=== PATIENT | female | born 1990 | race Caucasian/White ===

== ENCOUNTER → 2020-12-12 15:57 | Outpatient (CLI) | payer BC, SELFPAY ==
--- NOTE | ~2020-12-12 | XR_ITS ---
EXAMINATION: XR hand RT min 3V DATE: 12/12/2020 16:50 INDICATION: Right hand pain. TECHNIQUE: 3 views of right hand were obtained. COMPARISON: None. FINDINGS: Bone alignment is normal. No fracture. Joint spaces are well maintained. IMPRESSION: 1. Normal right hand. Reviewed, dictated and finalized at location A. IMPRESSION: 1. Normal right hand.
== END ==
PROVIDERS: PCP Family Medicine; Visit Provider Physician Assistant Medical
DX: M79.641 Pain in right hand (principal)
CPT/HCPCS: 73130

== ENCOUNTER → 2021-05-15 03:07 | Outpatient (CLI) | payer OTHER, SELFPAY ==
[2021-05-15 19:14] LABS: SARS-CoV-2 RNA PCR Negative
== END ==
PROVIDERS: Visit Provider Surgery Plastic and Reconstructive Surgery
DX: Z01.812 Encounter for preprocedural laboratory examination (principal); Z20.822 Contact with and (suspected) exposure to COVID-19
CPT/HCPCS: C9803; U0003; U0005

== ENCOUNTER 2021-05-18 05:46 | Day surgery (SDC) | payer OTHER, SELFPAY ==
[2021-05-04 12:23] VITALS: BMI 22.2
--- NOTE | 2021-05-17 08:15 | WPDANESEPPF ---
Anes - Initial Pre Proc Eval Procedure: Operation Date: 05/18/21 07:30 Proposed Procedures p Dual Plane Bilateral Breast Augmentation Mammoplasty - Hammad Andino MD Date/Time: 05/17/21 08:15 Surgeon: Hammad Andino MD Pre Op Diagnosis: Micromastia Patient Data Age: 30 Gender: F Height: 1.7 m Weight: 64.41 kg Allergies Allergy/AdvReac Type Severity Reaction Status Date / Time No Known Allergies Allergy Verified 05/18/21 06:51 Home Medications Medication Instructions Recorded Confirmed Type PNV cmb#95-ferrous fumarate-FA 1 tablet PO DAILY 08/17/19 05/18/21 History [] norgestimate 0.25 mg-ethinyl 1 tablet PO DAILY 12/12/20 05/18/21 History estradiol 35 mcg tablet carisoprodol 350 mg tablet 350 mg PO TID PRN #21 tablet 05/03/21 05/18/21 Rx docusate sodium 100 mg capsule 100 mg PO DAILY #14 cap 05/03/21 05/18/21 Rx ondansetron HCl 4 mg tablet 4 mg PO Q8H #21 tablet 05/03/21 05/18/21 Rx oxycodone-acetaminophen 5 mg-325 1 tablet PO Q6H PRN #15 tablet 05/03/21 05/18/21 Rx mg tablet Patient hx anesthesia problems: none Family hx anesthesia problems: none Results Review: All pre-operative results and documents have been reviewed as part of the pre-operative evaluation. COUNTS INCLUDE 234 BEDS AT THE [facility] Family History Family History Grandparent Family history of malignant neoplasm Family history of Alzheimer's disease Family history of pancreatic cancer Mother Family history of lupus erythematosus Hypoglycemia Social History Social History Smoking status: Unknown if ever smoked Second hand tobacco smoke exposure: No Alcohol intake: current Alcohol use details: socially Substance use: never Living arrangements: with family Spiritual care concerns: No Anes - Eval Final PreProcedure Day of Procedure 05/17/21 08:15 Patient weight: normal Heart: regular rate and rhythm Lungs: clear to auscultation and normal air movement Airway: Mallampati scale class II Neurological: alert and oriented Last oral intake: >/= 8 hours ASA classification: I Emergent: no Anesthetic plan: proceed Anesthesia type and monitoring: general LMA and standard monitoring Results Review: All pre-operative results and documents have been reviewed as part of the pre-operative evaluation. Informed Consent: The patient's anesthetic plan and its attendant risks and benefits were discussed with the patient/family/POA. Questions were solicited and answers provided to the satisfaction of the patient/family/POA.
[2021-05-18] VITALS (9 sets, daily range): BP systolic 100–114; BP diastolic 62–82; PULSE 62–96; RESP 13–21; TEMP 36.8–37.1; O2SAT 99–100; BMI 22.1
[2021-05-18] MEDS: LACTATED RINGERS 1,000 ML 30 ML IV CONT ×2 (06:47→08:25)
[2021-05-18] MEDS: SCOPOLAMINE 1.5 MG PATCH TRANSDERM (06:47)
--- NOTE | 2021-05-18 06:58 | WPDHPUPDATE1 ---
History and Physical Update Update Date/Time: 05/18/21 06:58 History and Physical has been reviewed, including an updated exam of the patient. There are NO changes in the patient's condition. Risks, benefits, and alternatives have been discussed and questions answered. Patient agrees to proceed with procedure.
--- NOTE | 2021-05-18 07:07 | W.PM.PROC2 ---
Procedure Note - Detailed Date of Procedure 05/18/21 Pre-op Diagnosis Micromastia Post-op Diagnosis same Procedure Performed Bilateral Augmentation Mammaplasty Surgeon Hammad Andino MD Anesthesia general Findings Bilateral Augmentation Mammaplasty Rick Patel SoftTouch 360cc Right - REF# [facility] SN [id number] dual plane 3 Left - REF# [id number] SN [id number] dual plane 3 Description of Procedure She is here today for bilateral breast augmentation. Previously and again today the risks, benefits, alternatives were discussed in extensive detail. I wanted her to be very realistic about the risks involved as well as expectations. We discussed aftercare and what to monitor for. Made sure answered all of her questions to her satisfaction today and consent was obtained. Marked in the preoperative holding area with their verification. The patient was taken to the operating room placed supine on the operating table. Anesthesia was provided by anesthesiology. A surgical time-out was taken. We cleansed the skin and 1% lidocaine and 0.25% Marcaine with epinephrine was used anesthetize as a field block. She was prepped and draped in a standard sterile fashion. Tegaderm nipple Albarado were placed. A 15 blade used to make an incision along the inframammary fold. Dissection was continued at 45 degree angle until the chest wall as identified. I elevated above the muscle in a dual plane fashion. I incised the pectoralis major along its inferior border and completely released the inferior border leaving the medial border intact. I created a subpectoral pocket in the appropriate dimensions based on our preoperative planning for the implant. I then copiously irrigated with saline solution and verified a strict hemostasis. Next the use a triple antibiotic and Betadine containing solution to irrigate the pocket. I washed my gloves with the triple antibiotic and Betadine solution. We washed the implant immediately upon opening it with this solution and only opened it when we needed it. I used implant funnel and no-touch technique. The implant was introduced into the pocket using the funnel. Having verified positioning of the implant this was closed using 2-0 Vicryl followed by 3-0 Monocryl in a running subcuticular 4-0 Monocryl followed by tissue glue. Fluffs, Zachary wrap, and surgical bra were placed. Patient was awoke and taken to PACU without difficulty. All instrument sponge counts were correct at the end of the case. Estimated Blood Loss 20 Drains No Packing No Pathology none sent Complications No immediate complications Condition stable Disposition PACU
[2021-05-18] MEDS: ceFAZolin SODIUM 2 GM/20 ML SW SYRINGE IV PUSH (07:22)
[2021-05-18] MEDS: BUPIVACAINE HCL 0.25% 50 ML VIAL INFILTRATE (07:52)
[2021-05-18] MEDS: LIDO 1%/EPINEPHRINE 1:100,000 20 ML VIAL 30 ML INFILTRATE (07:53)
[2021-05-18] MEDS: fentaNYL CITRATE INJ (*CRX) 100 MCG/2 ML VIAL 25 MCG IV PUSH ×2 (08:46→09:01)
[2021-05-18] MEDS: oxyCODONE HCL (*CRX) 5 MG TAB IR PO (09:34)
[2021-05-18] MEDS: ONDANSETRON INJ 4 MG/2 ML VIAL IV PUSH (09:45)
[2021-05-18] MEDS: diphenhydrAMINE HCl INJ 50 MG/ML VIAL 25 MG IV PUSH (10:19)
--- NOTE | 2021-05-18 12:40 | WPDANESPN ---
Anes - Prog Note Post-Op Date/Time: 05/18/21 12:40 Cardiovascular status: normal Respiratory status: normal Airway patency: baseline Mental status: baseline Post-Op hydration status: normal Vital Signs: Last Vital Signs Temp 36.8 C 05/18/21 08:31 Pulse 76 05/18/21 10:31 Resp 13 05/18/21 10:31 BP 114/74 05/18/21 10:31 Pulse Ox 99 05/18/21 10:31 Pain Score (VAS): 2 I/O: Intake & Output 05/17/21 05/18/21 05/18/21 23:59 07:59 15:59 Intake Total 700 Balance 700 Post-procedural complaints: none Patient Feedback: Patient satisfied with anesthetic care. Other Findings: Patient vital signs back to baseline. Patient denies nausea and vomiting. Patient's pain under control. Patient OK for discharge.
== END 2021-05-18 10:50 | disposition home or self-care (01) ==
PROVIDERS: Visit Provider Surgery Plastic and Reconstructive Surgery
PROC: (CPT 19325; principal; 2021-05-18 07:30)
DX: N64.82 Hypoplasia of breast (principal)
CPT/HCPCS: 19325

== ENCOUNTER 2024-03-24 12:57 | Outpatient (CLI) | payer BC, SELFPAY ==
--- NOTE | ~2024-03-24 | XR_ITS ---
XR foot LT min 3V Ordering provider: Carey Noriega, History: . Trauma Lt great toe . Comparison: None. FINDINGS: BONES: No acute fracture or dislocation. JOINT SPACES: Normal. No tarsal coalition. SOFT TISSUES: Normal. IMPRESSION: No acute osseous abnormality left foot. Reviewed, dictated and finalized at location A.
== END 2024-03-24 12:58 ==
PROVIDERS: PCP Internal Medicine; Visit Provider Internal Medicine
DX: S90.932A Unspecified superficial injury of left great toe, initial encounter (principal); X58.XXXA Exposure to other specified factors, initial encounter
CPT/HCPCS: 73630

== ENCOUNTER 2024-05-05 19:46 | Observation (INO) | payer BC, SELFPAY ==
--- NOTE | 2024-05-05 22:05 | PC.NURSE ---
MD notified of patient arrival to labor and delivery with complaints of possible contractions. Dr. Obregon aware that patient has been monitored for over 2 hours FHTs have moderate variability and accels present. Patient is aron irregularly. MD aware of no cervical change. New orders to discharge patient at this time. Patient agrees and feels comfortable with being discharged.
[2024-05-05 22:27] VITALS: BMI 31.4
--- NOTE | 2024-05-05 22:27 | OBADM ---
This patient, Diana Garces, admitted to the OB room Labor/Delivery/Recovery 105 for observation. Patient/family oriented to hospital policies and general routines including ID bracelet, bed and alarms, visiting hours, pain management, procedures, bathroom and other care routines, personal items, smoking policy, room service/diet, and visiting hours. Patient/Family are encouraged to report perceived risks to care and to ask questions if they do not understand what they are told or what they should do.
--- NOTE | 2024-05-06 10:27 | PM.OBTRLD ---
OB - Triage/Final Diagnosis Visit Information Date of evaluation: 05/05/24 Reason for evaluation: threatened labor Comments/Additional reasons for admission: I have assessed the risk for this patient, Diana Garces, and determined that she would benefit from observation care. Evaluation Vital signs: Vital Signs - 24 hr 05/05/24 22:41 Oxygen Delivery Room Air
== END 2024-05-05 23:10 | disposition home or self-care (01) ==
PROVIDERS: Admitting Provider Student in an Organized Health Care Education/Training Program; PCP Internal Medicine; Visit Provider Student in an Organized Health Care Education/Training Program
DX: O47.03 False labor before 37 completed weeks of gestation, third trimester (principal); Z3A.36 36 weeks gestation of pregnancy
CPT/HCPCS: G0378; G0379

== ENCOUNTER 2024-05-26 04:59 | Inpatient (IN) | payer OTHER, SELFPAY ==
[2024-05-26] VITALS (136 sets, daily range): BP systolic 81–129; BP diastolic 47–89; PULSE 64–110; RESP 16; TEMP 36.5–37.1; O2SAT 94–100; BMI 32.1
--- NOTE | 2024-05-26 05:27 | LDADM ---
This patient, Diana Garces, was admitted to Labor/Delivery/Recovery 104 on 05/26/24 at 04:59. Plans for labor, pain management and were discussed with patient. Patient/family oriented to hospital policies and general routines including ID bracelet, bed and alarms, visiting hours, pain management, procedures, bathroom and other care routines, personal items, smoking policy, room service/diet and guest tray routines, security routines, and visiting hours. Patient/Family are encouraged to report perceived risks to care and to ask questions if they do not understand what they are told or what they should do. See OBIX for further documentation.
[2024-05-26 05:42] LABS: Basophils Absolute Auto 0.1 K/mm3 (0.0-0.1); Basophils Percent Auto 0.5 % (0.2-1.2); Eosinophils Absolute Auto 0.1 K/mm3 (0-0.3); Eosinophils Percent Auto 0.8 % (0-4.4); Hematocrit 33.5 % (37.0-47.0); Hemoglobin 11.7 g/dL (12.0-15.0); Immature Granulocyte Percent A 1.1 % (0-0.5); Lymphocytes Absolute Auto 2.41 K/mm3 (0.9-3.2); Lymphocytes Percent Auto 26.3 % (18.3-44.2); Mean Corpuscular HGB Conc 34.9 g/dl (32-36); Mean Corpuscular Hemoglobin 32.1 pg (26-34); Mean Platelet Volume 9.5 fl (7.4-10.4); Monocytes Absolute Auto 0.8 K/mm3 (0.1-0.6); Monocytes Percent Auto 8.8 % (2.6-8.5); Neutrophils Absolute Auto 5.7 K/mm3 (1.3-6.7); Neutrophils Percent Auto 62.5 % (45.5-73.1); Platelet Count Result 173 k/mm3 (150-375); Red Blood Count 3.64 M/mm3 (4.2-5.4); Red Cell Distribution Width 12.6 % (11.5-14.5); White Blood Count 9.2 K/mm3 (4.5-10.0)
[2024-05-26] MEDS: OXYTOCIN 30 UNITS/NS 500 ML 30 UNITS/500 ML BAG IV CONT ×2 (05:59→13:07)
[2024-05-26] MEDS: LACTATED RINGERS 1,000 ML 125 ML IV CONT ×2 (05:59→08:35)
[2024-05-26] MEDS: ONDANSETRON INJ 4 MG/2 ML VIAL IV PUSH (06:12)
[2024-05-26 06:33] LABS: HIV 1/2 Ab P24 Ag Result Negative (Negative)
[2024-05-26 08:29] LABS: Rapid Plasma Reagin Non-Reactive (NonReactive)
--- NOTE | 2024-05-26 12:56 | WPDHPUPDATE1 ---
History and Physical Update Update Date/Time: 05/26/24 12:56 History and Physical has been reviewed, including an updated exam of the patient. There are NO changes in the patient's condition. Risks, benefits, and alternatives have been discussed and questions answered. Patient agrees to proceed with procedure.
--- NOTE | 2024-05-26 12:56 | WPDOBADMIT ---
Obstetrics - Admit Note Admission Note: record reviewed. No pertinent additions to the history and/or any subsequent changes in the physical findings that are not consistent with the expected course of the were found. Additions to the history and/or subsequent changes in the physical findings follow. None.
--- NOTE | 2024-05-26 12:56 | PM.OBPRVD ---
OB - Vaginal Delivery Note Procedure Delivery date: 05/26/24 Events: Elective Induction of Labor Induction method: AROM Delivery augmentation: Pitocin Delivery monitor: External FHT and External Uterine Route of delivery: Episiotomy description: None Laceration Description: Perineal - 1st Degree Delivery repair: chromic Specimen: No Quantitative Blood Loss (ml): 300 Anesthesia type: Epidural Disposition: Floor Complications: No immediate complications Narrative: Patient prepped and draped in usual manner for this procedure. Maternal expulsive efforts readily delivered vertex over intact perineum. Rest of baby was delivered cord clamped cut and placenta delivered spontaneously. Uterus was well contracted. Cervix vagina were inspected with first-degree vaginal wall laceration. This was rendered hemostatic and approximation 0 chromic in a running interlocking manner with good approximation. Patient are procedure well immediate postoperative condition baby and a mother were both excellent. Baby Gestational Age by Date: 39 Infant gender: Female Weight (pounds): 8 Weight (ounces): 15 presentation: vertex position: Right Occiput Anterior Placenta delivery description: Spontaneous Cord Vessel Description: 3 Vessels score one minute: 8 score five minutes: 9
[2024-05-26] MEDS: BENZOCAINE 20% AER SPR (*SP) 56 GM CAN 1 SPRAY (15:57)
[2024-05-26] MEDS: WITCH HAZEL 40 PADS 1 PAD (15:57)
--- NOTE | 2024-05-26 16:10 | OBPPTRN ---
Patient transferred to post room #285 via wheelchair. Support person present. Oriented to unit, room, information board, rooming in, admission packet and security measures. Patient verbalizes understanding.
[2024-05-26] MEDS: IBUPROFEN 600 MG TABLET PO (18:35)
[2024-05-27 00:01] VITALS: BP 96/54; PULSE 77; RESP 16; TEMP 36.6; O2SAT 99
[2024-05-27 06:06] LABS: Hematocrit 31.2 % (37.0-47.0); Hemoglobin 10.6 g/dL (12.0-15.0)
[2024-05-27] MEDS: DOCUSATE SODIUM 100 MG CAPSULE PO (07:12)
[2024-05-27] MEDS: MULTIVIT/MIN/PREN/FOL AC/IRON TABLET 1 TAB PO (07:12)
[2024-05-27] MEDS: IBUPROFEN 600 MG TABLET PO (07:13)
[2024-05-27 08:40] VITALS: BP 114/68; PULSE 82; RESP 16; TEMP 36.2; O2SAT 100
--- NOTE | 2024-05-27 08:51 | PM.OBDSVD ---
DS: Admitting Diagnosis Discharge Date 05/27/24 Admitting Diagnosis intrauterine at term DS: Discharge Diagnosis Discharge Diagnosis (1) (normal spontaneous vaginal delivery): Code(s): O80 - Encounter for full-term uncomplicated delivery Status: Acute OB - DS: Summary OB Procedures : None OB Procedures Intrapartum: Spontaneous Vag Delivery OB Procedures: : None Peripartum Data Laceration Description: Perineal - 1st Degree Episiotomy description: None Status at Discharge Functional status at discharge: independent ambulation Overall status at discharge: patient is back to baseline Time Spent with Patient Time attestation: Total time spent providing and/or coordinating discharge services: Time spent: Less than 30 minutes Exam Const: General: comfortable and no acute distress Resp: Effort & Inspection: normal respiratory effort Auscultation: clear to auscultation bilaterally Cardio: Rate: regular rate GI: GI Palp: Yes Soft to palpation Auscultation: normal bowel sounds Other: Fundus firm below umbilicus Psych: Appearance: grossly normal Mental Status: mental status grossly normal Affect: normal affect DS: Data Data Completed and Pending Labs on day of discharge: Labs from last 24 hours 05/27/24 05:37 Hgb 10.6 L Hct 31.2 L Discharge Plan Discharge Discharging Clinician: Wicho Obregon Patient Disposition: Home, Self-Care Activity: as tolerated and pelvic rest Diet: regular Patient Instructions: Antibiotic Form, Vaginal Delivery (DC) Stand Alone Forms: General Discharge Information Follow-up/Referrals: Solomon Rosales MD [Physician] - 4 Weeks Discharge Medications: New acetaminophen 500 mg tablet 500 mg PO Q6H PRN (Reason: pain) Qty: 30 0RF ibuprofen 600 mg tablet 600 mg PO Q6H PRN (Reason: pain) Qty: 30 0RF Continued omega 4-sjw-omw-fish oil [Fish Oil] 60-90-500 mg capsule 1 cap PO DAILY cholecalciferol (vitamin D3) 10 mcg (400 unit) capsule 10 mcg PO DAILY DHA 200 mg capsule PO ondansetron 8 mg tablet,disintegrating 8 mg PO Q8H 30 Days Qty: 90 2RF Zoloft Date of admission: 05/26/24 04:59 Primary Care Provider: Jos,Carey Hendrickson Admitting Provider: Hurford,Solomon M. Attending physician on admission: Solomon Rosales Condition: Stable
[2024-05-27 12:10] VITALS: BP 108/61; PULSE 79; RESP 16; TEMP 36.4; O2SAT 100
[2024-05-28 09:04] VITALS: BP 117/71; PULSE 83; RESP 20; TEMP 36.9; O2SAT 99
== END 2024-05-27 13:47 | disposition home or self-care (01) | DRG 807 ==
LOC: ANHLDR 05:23 → ANHOB2 17:23 → ANHLDR 05-28 09:59 → ANHOB2 05-28 09:59
PROVIDERS: Admitting Provider Obstetrics & Gynecology; PCP Internal Medicine; Visit Provider Student in an Organized Health Care Education/Training Program
DX: O70.0 First degree perineal laceration during delivery (principal); Z37.0 Single live birth; Z3A.39 39 weeks gestation of pregnancy
CPT/HCPCS: 36415; 85014; 85018; 85025; 86592; 86703; 86850; 86900; 86901; A9270; G0432; J2405; J2590; J2795; J7120

== ENCOUNTER 2025-03-04 12:01 | Emergency (ER) | payer OTHER, SELFPAY ==
--- NOTE | 2025-03-04 12:05 | ED_ITS ---
HPI - Animal Bite General Chief Complaint: Animal Bite Stated Complaint: Kitten Bite Time Seen by Provider: 03/04/25 12:41 Source: patient and RN notes reviewed Mode of arrival: ambulatory Limitations: dementia History of Present Illness HPI narrative: 34-year-old female presents with concern of for cap bite to the 3rd digit of her left hand. She reports she was bit by a kitten at work today, reports that was sick and they are not sure or mood what was making insect. It was un vaccinated. The kidney is able to be quarantined. MD complaint: animal bite Related Data Allergies Allergy/AdvReac Type Severity Reaction Status Date / Time No Known Drug Allergies Allergy Other Verified 03/04/25 12:24 Review of Systems Review of Systems: CONSTITUTIONAL: Denies malaise, chills, sweats, or fever. EYES: Denies redness, or discharge. ENT: Denies rhinorrhea, congestion, swollen lips, swollen tongue CARDIOVASCULAR: Denies chest pain, palpitations, or edema. RESPIRATORY: Denies cough or dyspnea. GASTROINTESTINAL: Denies abdominal pain, nausea, vomiting SKIN: Reports puncture wounds to the tip of the 3rd digit of the left hand. Denies purulent drainage, vesicles, bullae, numbness, pain beyond proportion MUSCULOSKELETAL: Denies joint pain or myalgia. NEUROLOGIC: Denies headache. All systems reviewed & are unremarkable except as noted in HPI and below PMFSH Past Medical History Medical History Migraines PCR DNA positive for HSV1 Surgical History Surgical History H/O breast augmentation (05/12/21) Hx of LASIK (~2010) Family History Family History Grandparent Family history of malignant neoplasm Family history of Alzheimer's disease Family history of pancreatic cancer maternal grandmother Mother Family history of lupus erythematosus Hypoglycemia Social History Social History Smoking status: Never smoker Second hand tobacco smoke exposure: No Alcohol intake: former Alcohol use details: socially Substance use: never Substance use type: does not use Do You Feel Safe in your Home?: Yes Lack of Transportation: No Lack of Food: Never True Current Housing: I Have Housing Concerned About Future Housing: No Difficulty Paying Gas/Electric Bills: No Difficulty Paying for Meds: No Currently Unemployed: No Education: Bachelor's Degree Difficulty w/ Childcare or Family Care: No Living arrangements: other Additional living arrangements comments: Occupation/Education: occupation 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 There is no relevant family history pertinent to the presenting complaint Exam Narrative: GENERAL: Well-appearing, well-nourished, and in no acute distress. HEAD: Normocephalic, atraumatic. EYES: PERRLA, conjunctivae clear ENT: Mucous membranes moist. NECK: Supple. No lymphadenopathy CHEST: Clear to auscultation. No respiratory distress. HEART: Regular rate and rhythm. SKIN: Warm, dry. To pinpoint puncture wounds noted to the distal left 3rd digit without Erythema, induration, tenderness, warmth. No vesicles, bullae, necrosis, ecchymosis, crepitus noted. NEURO: Alert and oriented x3. PSYCH: Normal mood and affect Course Course Emergency Course: Patient is aware of diagnosis, understands and agrees to treatment plan. Anticipatory guidance given. Patient agrees to follow-up as directed and is aware of reasons to seek care at the emergency department. Portions of this record may have been created with voice recognition software Level of Care: Express Care Visit Vital Signs Vital signs: Vital Signs Temperature 97.6 F 03/04/25 12:13 Respiratory Rate 16 03/04/25 12:13 Blood Pressure 113/75 03/04/25 12:13 Pulse Oximetry 99 03/04/25 12:13 Temperature 97.6 F 03/04/25 12:13 Respiratory Rate 16 03/04/25 12:13 Blood Pressure 113/75 03/04/25 12:13 Pulse Oximetry 99 03/04/25 12:13 Reviewed. MDM - Animal Bite MDM Narrative Medical decision making narrative: I evaluated this patient in the express care. History is obtained from patient who is an independent historian and physical exam was performed.? Available medical records were reviewed. ? Exam findings testing show no acute concerns or changes; patient is non-toxic appearing and is in no distress. ? Differential diagnosis and treatment plan were discussed with the patient. Patient agrees with discussion and after shared medical decision making agrees with plan of care. All questions were answered to the patient's satisfaction. Patient is appropriate for outpatient treatment and follow-up. Differential Diagnosis Differential diagnosis: Likely bite by animal Critical Care Time Critical Care Time Critical Care Time: No Discharge Plan Discharge Clinical Impression: Cat bite Patient Disposition: Home Condition: Stable Instructions: Antibiotic Form, Animal Bite (ED) Additional Instructions: Please follow up with your Primary Care Doctor within 48-72 hours - call for an appointment. Rest and elevate affected area; apply moist heat/warm soaks 3-4 times daily for 10-15 minutes. Take Motrin 600mg every 8 hours with food for pain. Please take Antibiotics as directed. If you experience any worsening redness, swelling, streaking (red lines), fever or chills please go to the ER Patient Language: Swiss Prescriptions: New amoxicillin-pot clavulanate 875-125 mg tablet 1 tablet PO Q12H 10 Days Qty: 20 0RF Follow-up/Referrals: Jos,Carey Hendrickson MD [Primary Care Provider] - Time of Disposition: 12:50
[2025-03-04 12:13] VITALS: BP 113/75; RESP 16; TEMP 36.4; O2SAT 99
== END 2025-03-04 13:06 | disposition home or self-care (01) ==
PROVIDERS: Emergency Provider Nurse Practitioner; PCP Internal Medicine
DX: S61.233A Puncture wound without foreign body of left middle finger without damage to nail, initial encounter (principal); W55.01XA Bitten by cat, initial encounter
CPT/HCPCS: 99213; G0463